=== PATIENT | female | born 1980 | race Two or more races ===

== ENCOUNTER 2017-10-18 02:46 | Emergency (ER) | payer SELFPAY ==
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
--- NOTE | 2017-10-19 10:01 | CR ---
Cervical spine: AP, lateral and odontoid views of the cervical spine were obtained. Comparison: No prior cervical spine imaging. Vertebral body heights and disc spaces are maintained. Prevertebral soft tissues are normal. No subluxation or fracture is seen. Impression: 1. No abnormality is appreciated on three-view cervical spine exam. Diagnostic code #1
--- NOTE | 2017-10-19 10:06 | CR ---
Thoracic spine: AP, lateral and swimmer's views of the thoracic spine were obtained. Disc space narrowing is noted throughout the thoracic spine. Mild scattered endplate osteophytes are also scattered throughout the spine. Minimal scoliosis is noted. Pedicles are intact. No subluxation or fracture is seen. Surgical clips are noted from prior cholecystectomy. Impression: 1. Mild degenerative change and scoliosis. 2. Nothing acute is appreciated on three-view thoracic spine exam. Diagnostic code #1
== END 2017-10-18 04:06 | disposition home or self-care (01) ==
LOC: JD.ED 02:46
DX: S13.9XXA Sprain of joints and ligaments of unspecified parts of neck, initial encounter (principal); S23.3XXA Sprain of ligaments of thoracic spine, initial encounter; H57.8 Other specified disorders of eye and adnexa; V40.6XXA Car passenger injured in collision with pedestrian or animal in traffic accident, initial encounter
CPT/HCPCS: 72040; 72040-26; 72072; 72072-26; 99284; 99285-25